=== PATIENT | female | born 1975 | race Caucasian/White ===

== ENCOUNTER 2020-09-28 09:32 | Emergency (ER) | payer OTHER ==
[2020-09-28 11:30] LABS: HEMOGLOBIN 11.9 gm/dl (12.3-15.3); RED BLOOD COUNT 4.26 M/UL (4.00-5.10); WHITE BLOOD COUNT 5.3 K/UL (4.5-11.0)
[2020-09-28 12:52] LABS: BUN/CREATININE RATIO 20 (0-10)
== END 2020-09-28 15:54 | disposition home or self-care (01) ==
LOC: ER1 09:32
PROVIDERS: Emergency Medicine
DX: U07.1 COVID-19 (principal); R79.89 Other specified abnormal findings of blood chemistry; E11.9 Type 2 diabetes mellitus without complications
CPT/HCPCS: 0240U; 71045; 80053; 81001; 82550; 82553; 83874; 84484; 84703; 85025; 85379; 86140; 87081; 87880; 93005; 99284; J7040; M0239